=== PATIENT | male | born 1960 | race Caucasian/White ===

== ENCOUNTER 2023-03-13 07:56 | Inpatient (IN) | payer MEDICAID ==
[~2023-03-13] VITALS: Ht 177.8 cm; Wt 56.0 kg
[2023-03-13 08:40] LABS: Basophils # (auto) 0.2 10 ^3/uL (0-0.2); Basophils % (auto) 1.2 % (0.0-2.0); Eosinophils # (auto) 0.1 10 ^3/uL (0-0.8); Eosinophils % (auto) 0.6 % (0.0-7.0); Hematocrit 38.6 % (41.0-53.0); Hemoglobin 12.3 g/dL (13.5-17.5); Lymphocytes # (auto) 1.4 10 ^3/uL (0.4-5.4); Lymphocytes % (auto) 9.4 % (10.0-50.0); Mean Corpuscular Hemoglobin 28.5 pg (28.0-32.0); Mean Corpuscular Hgb Conc. 31.8 g/dL (32.0-36.0); Mean Corpuscular Volume 89.9 fL (80.0-100.0); Monocytes # (auto) 1.3 10 ^3/uL (0-1.3); Monocytes % (auto) 8.7 % (0.0-12.0); Neutrophils # (auto) 11.9 10 ^3/uL (1.6-8.6); Neutrophils % (auto) 80.1 % (37.0-80.0); Red Cell Distribution Width 15.9 % (11.8-14.3); White Blood Cell 14.9 10^3/uL (4.4-10.8)
[2023-03-13 09:01] LABS: Alanine Aminotransferase 90 U/L (7-40); Albumin 4.2 g/dL (3.2-4.8); Alkaline Phosphatase 74 U/L (46-116); Anion Gap 8 (5-15); Aspartate Aminotransferase 37 U/L (13-40); BUN/Creatinine Ratio 30.2 (10.0-20.0); Bilirubin, Total 1.3 mg/dL (0.2-1.0); Blood Urea Nitrogen 39 mg/dL (9-23); Calcium 8.9 mg/dL (8.5-10.1); Carbon Dioxide 31 mmol/L (20-30); Chloride 103 mmol/L (98-107); Glucose 92 mg/dL (74-106); Potassium 3.1 mmol/L (3.5-5.1); Sodium 142 mmol/L (136-145); Total Protein 6.4 g/dL (5.7-8.2)
[2023-03-13 09:18] LABS: INR 1.1 (0.9-1.15); Partial Thromboplastin Time 28.7 SEC (24.5-34.5); Prothrombin Time 11.7 sec (9.3-11.8)
[2023-03-13] MEDS ORDERED: SODIUM CHLORIDE 0.9% 1,000 ML IV ONE (09:30)
[2023-03-13] MEDS ORDERED: ASPirin 81 mg TAB PO ONE (09:30)
[2023-03-13] MEDS ORDERED: POTASSIUM EFFERVESENT TAB 25 MEQ PO ONE (10:00)
[2023-03-13 10:56] LABS: Urine Epithelial Cast None Seen /hpf (<5)
[2023-03-13 11:54] LABS: Urine Bacteria FEW /hpf (None Seen); Urine Blood Negative /uL (Negative); Urine Clarity Clear (Clear); Urine Protein, UAD Negative (Negative); Urine Specific Gravity 1.005 (1.001-1.035); Urine Urobilinogen Normal (Negative); Urine WBC 1 /hpf (0 - 3)
[2023-03-13 11:59] LABS: Urine Color Straw (Yellow)
[2023-03-13] MEDS ORDERED: ACETAMINOPHEN 325 MG TAB PO PRN (15:30)
[2023-03-13] MEDS ORDERED: cefTRIAXone 1GM/50ML D5W 50 ML IV ONE (15:30)
[2023-03-13] MEDS ORDERED: FUROSEMIDE 20 MG/2 ML VIAL IV ONE (15:30)
[2023-03-13] MEDS ORDERED: PANTOPRAZOLE 40 MG TAB PO ONE (15:45)
[2023-03-13] MEDS ORDERED: ALBUTEROL SULF 2.5 MG/0.5ML(0.5%) NEB SOLN NEB PRN (15:45)
[2023-03-13 16:47] VITALS: PULSE 64; RESP 18; O2SAT 95
[2023-03-13 17:05] VITALS: BP 118/68; PULSE 64; RESP 20; TEMP 98.2; O2SAT 96
[2023-03-13] MEDS: IPRATROPIUM BROM 0.5 MG/2.5ML INH SOL NEB SCH ×2 (17:57→22:27)
[2023-03-13] MEDS: ALBUTEROL SULF 2.5 MG/0.5ML(0.5%) NEB SOLN NEB SCH ×2 (17:57→22:27)
[2023-03-13 23:55] VITALS: BP 115/71; PULSE 61; RESP 17; TEMP 98.3; O2SAT 99
[2023-03-14] VITALS (19 sets, daily range): BP systolic 90–142; BP diastolic 62–84; PULSE 51–72; RESP 17–20; TEMP 98–98.7; O2SAT 95–100
[2023-03-14] MEDS: IPRATROPIUM BROM 0.5 MG/2.5ML INH SOL NEB SCH ×4 (01:32→14:08)
[2023-03-14] MEDS: ALBUTEROL SULF 2.5 MG/0.5ML(0.5%) NEB SOLN NEB SCH ×4 (01:32→14:08)
[2023-03-14] MEDS ORDERED: GUAI1TAB18 PO (02:54)
[2023-03-14] MEDS ORDERED: DOCU-94 PO (02:54)
[2023-03-14] MEDS ORDERED: FURO40TA4 PO (02:54)
[2023-03-14] MEDS ORDERED: NIC21P TOP (02:54)
[2023-03-14] MEDS ORDERED: APIX5TAB PO ×2 (02:54→15:13)
[2023-03-14] MEDS ORDERED: PANT40TA2 PO (02:54)
[2023-03-14] MEDS ORDERED: DILT30TA PO ×2 (02:54→15:13)
[2023-03-14] MEDS ORDERED: BENZ100C97 PO (02:54)
[2023-03-14] MEDS ORDERED: ALBU2TAB11 PO (02:54)
[2023-03-14 06:41] LABS: Alanine Aminotransferase 59 U/L (7-40); Albumin 3.4 g/dL (3.2-4.8); Alkaline Phosphatase 58 U/L (46-116); Anion Gap 5 (5-15); Aspartate Aminotransferase 23 U/L (13-40); BUN/Creatinine Ratio 23.5 (10.0-20.0); Calcium 8.3 mg/dL (8.7-10.4); Carbon Dioxide 30 mmol/L (20-30); Chloride 104 mmol/L (98-107); Glucose 75 mg/dL (74-106); Potassium 3.4 mmol/L (3.5-5.1); Sodium 139 mmol/L (136-145)
[2023-03-14 06:48] LABS: Blood Urea Nitrogen 28 mg/dL (9-23)
[2023-03-14 07:01] LABS: Basophils # (auto) 0 10 ^3/uL (0-0.2); Basophils % (auto) 0.1 % (0.0-2.0); Eosinophils # (auto) 0.1 10 ^3/uL (0-0.8); Eosinophils % (auto) 0.8 % (0.0-7.0); Hematocrit 32.3 % (41.0-53.0); Hemoglobin 10.5 g/dL (13.5-17.5); Lymphocytes # (auto) 1.2 10 ^3/uL (0.4-5.4); Lymphocytes % (auto) 11.1 % (10.0-50.0); Mean Corpuscular Hemoglobin 29.1 pg (28.0-32.0); Mean Corpuscular Hgb Conc. 32.5 g/dL (32.0-36.0); Mean Corpuscular Volume 89.4 fL (80.0-100.0); Monocytes # (auto) 1.1 10 ^3/uL (0-1.3); Monocytes % (auto) 9.8 % (0.0-12.0); Neutrophils # (auto) 8.8 10 ^3/uL (1.6-8.6); Neutrophils % (auto) 78.2 % (37.0-80.0); Red Blood Cells 3.61 10^6/uL (4.5-5.90); Red Cell Distribution Width 15.9 % (11.8-14.3); White Blood Cell 11.3 10^3/uL (4.4-10.8)
[2023-03-14 07:08] LABS: Total Protein 5.5 g/dL (5.7-8.2)
[2023-03-14] MEDS ORDERED: cefTRIAXone 1GM/50ML D5W 50 ML IV SCH (09:00)
[2023-03-14] MEDS ORDERED: FUROSEMIDE 20 MG/2 ML VIAL IV SCH (10:00)
[2023-03-14] MEDS ORDERED: PANTOPRAZOLE 40 MG TAB PO SCH (10:00)
[2023-03-14] MEDS ORDERED: ENOXAPARIN SOD 40 MG/0.4 ML SYRINGE SC SCH (10:00)
[2023-03-14] MEDS ORDERED: ALBUAER3 IN (15:13)
[2023-03-14] MEDS ORDERED: POTA-180 PO (15:13)
[2023-03-14] MEDS ORDERED: FURO1TAB31 PO (15:13)
[2023-03-14] MEDS ORDERED: POTASSIUM CHL 20 Meq TABLET PO ONE (15:15)
== END 2023-03-14 15:50 | disposition home or self-care (01) | DRG 194 ==
LOC: ER 07:56 → OVERFLOW 15:33 → WEST WING 23:55
PROVIDERS: ADMIT Nurse Practitioner Family; ATTEND Internal Medicine
DX: I50.43 Acute on chronic combined systolic (congestive) and diastolic (congestive) heart failure (principal); I21.A1 Myocardial infarction type 2; D68.69 Other thrombophilia; K21.9 Gastro-esophageal reflux disease without esophagitis; I48.91 Unspecified atrial fibrillation; E87.6 Hypokalemia; E83.42 Hypomagnesemia; D72.829 Elevated white blood cell count, unspecified; I25.10 Atherosclerotic heart disease of native coronary artery without angina pectoris; F17.210 Nicotine dependence, cigarettes, uncomplicated; Z90.49 Acquired absence of other specified parts of digestive tract; J44.9 Chronic obstructive pulmonary disease, unspecified
CPT/HCPCS: 36415; 71045; 80053; 81001; 83735; 83880; 84443; 84484; 85025; 85379; 85610; 85730; 87040; 87081; 93005; 93306; 94640; G0378

== ENCOUNTER 2023-04-26 19:55 | Inpatient (IN) | payer MEDICAID ==
[~2023-04-26] VITALS: Ht 170.2 cm; Wt 60.0 kg
[~2023-04-26 19:55] MED LIST: ALBU2TAB11 PO; ALBUAER3 IN; APIX5TAB PO; BENZ100C97 PO; DILT30TA PO; DOCU-94 PO; FURO1TAB31 PO; FURO40TA4 PO; GUAI1TAB18 PO; NIC21P TOP; PANT40TA2 PO; POTA-180 PO
[2023-04-26 20:59] LABS: Basophils # (auto) 0.1 10 ^3/uL (0-0.2); Basophils % (auto) 1.3 % (0.0-2.0); Eosinophils # (auto) 0.1 10 ^3/uL (0-0.8); Eosinophils % (auto) 1.7 % (0.0-7.0); Hematocrit 34.6 % (41.0-53.0); Hemoglobin 10.8 g/dL (13.5-17.5); Lymphocytes # (auto) 1.1 10 ^3/uL (0.4-5.4); Lymphocytes % (auto) 13.8 % (10.0-50.0); Mean Corpuscular Hemoglobin 28.2 pg (28.0-32.0); Mean Corpuscular Hgb Conc. 31.4 g/dL (32.0-36.0); Mean Corpuscular Volume 89.9 fL (80.0-100.0); Monocytes # (auto) 0.8 10 ^3/uL (0-1.3); Monocytes % (auto) 9.4 % (0.0-12.0); Neutrophils % (auto) 73.8 % (37.0-80.0); Red Blood Cells 3.85 10^6/uL (4.5-5.90); White Blood Cell 8.2 10^3/uL (4.4-10.8)
[2023-04-26 21:13] LABS: Alanine Aminotransferase 48 U/L (7-40); Albumin 3.8 g/dL (3.2-4.8); Alkaline Phosphatase 93 U/L (46-116); Anion Gap 11 (5-15); Aspartate Aminotransferase 43 U/L (13-40); BUN/Creatinine Ratio 28.6 (10.0-20.0); Bilirubin, Total 0.9 mg/dL (0.2-1.0); Blood Urea Nitrogen 32 mg/dL (9-23); Calcium 8.6 mg/dL (8.7-10.4); Carbon Dioxide 26 mmol/L (20-30); Chloride 107 mmol/L (98-107); Glucose 114 mg/dL (74-106); Potassium 3.8 mmol/L (3.5-5.1); Sodium 144 mmol/L (136-145); Total Protein 5.8 g/dL (5.7-8.2)
[2023-04-26 21:31] LABS: INR 1.19 (0.9-1.15); Partial Thromboplastin Time 30.8 SEC (24.5-34.5); Prothrombin Time 12.4 sec (9.3-11.8)
[2023-04-27] VITALS (8 sets, daily range): BP systolic 149; BP diastolic 94; PULSE 103–147; RESP 15–20; O2SAT 96–100
[2023-04-27] MEDS ORDERED: ONDANSETRON HCL 4 MG/2 ML VIAL IV PRN (03:15)
[2023-04-27] MEDS ORDERED: HYDROcodone-ACET 5/325MG TAB PO PRN (03:15)
[2023-04-27] MEDS ORDERED: ACETAMINOPHEN 325 MG TAB PO PRN (03:15)
[2023-04-27] MEDS ORDERED: MORPHINE SULFATE INJ 2 MG/ml SYRG IV PRN (03:15)
[2023-04-27] MEDS ORDERED: NITROGLYCERIN 0.4 MG SL TAB SL PRN (03:15)
[2023-04-27] MEDS ORDERED: DOCUSATE SOD 100 MG CAP PO PRN (03:15)
[2023-04-27] MEDS: AZITHROMYCIN 250 MG TAB PO ONE (04:14)
[2023-04-27] MEDS: FUROSEMIDE 40 MG/4 ML VIAL IV ONE (04:47)
[2023-04-27] MEDS: SODIUM CHLOR 0.9% PF (SALINE LOCK) 10ML VIAL/SYR IV SCH (06:06)
[2023-04-27 06:12] LABS: Basophils # (auto) 0.1 10 ^3/uL (0-0.2); Basophils % (auto) 1.1 % (0.0-2.0); Eosinophils # (auto) 0.2 10 ^3/uL (0-0.8); Eosinophils % (auto) 2.8 % (0.0-7.0); Hematocrit 34.2 % (41.0-53.0); Hemoglobin 11.1 g/dL (13.5-17.5); Lymphocytes # (auto) 1.5 10 ^3/uL (0.4-5.4); Lymphocytes % (auto) 17.2 % (10.0-50.0); Mean Corpuscular Hgb Conc. 32.3 g/dL (32.0-36.0); Mean Corpuscular Volume 89.8 fL (80.0-100.0); Monocytes # (auto) 0.8 10 ^3/uL (0-1.3); Monocytes % (auto) 8.9 % (0.0-12.0); Neutrophils # (auto) 6.1 10 ^3/uL (1.6-8.6); Red Blood Cells 3.81 10^6/uL (4.5-5.90); Red Cell Distribution Width 18.6 % (11.8-14.3); White Blood Cell 8.8 10^3/uL (4.4-10.8)
[2023-04-27] MEDS: dilTIAZem HCL 60 MG TAB PO SCH (06:18)
[2023-04-27 06:27] LABS: Alanine Aminotransferase 46 U/L (7-40); Albumin 3.9 g/dL (3.2-4.8); Alkaline Phosphatase 94 U/L (46-116); Anion Gap 12 (5-15); Aspartate Aminotransferase 30 U/L (13-40); BUN/Creatinine Ratio 30.8 (10.0-20.0); Blood Urea Nitrogen 33 mg/dL (9-23); Calcium 8.8 mg/dL (8.7-10.4); Carbon Dioxide 23 mmol/L (20-30); Chloride 107 mmol/L (98-107); Glucose 102 mg/dL (74-106); Potassium 3.4 mmol/L (3.5-5.1); Sodium 142 mmol/L (136-145)
[2023-04-27 06:28] LABS: Bilirubin, Total 0.8 mg/dL (0.2-1.0)
[2023-04-27 08:21] LABS: Amphetamine Screen, Urine Neg (NEGATIVE); Barbiturate Scree,Urine Neg (NEGATIVE); Benzodiazephine Screen, Urine Neg (NEGATIVE); Cannabinoid Screen, Urine Neg (NEGATIVE); Cocaine Screen, Urine Neg (NEGATIVE); Opiate Scree,Urine Neg (NEGATIVE); Phencyclidine Screen, Urine Neg (NEGATIVE)
[2023-04-27] MEDS: APIXABAN 5 MG TAB PO SCH (10:17)
[2023-04-27] MEDS: FUROSEMIDE 40 MG/4 ML VIAL IV SCH (10:18)
[2023-04-27] MEDS: AZITHROMYCIN 500MG/ 250ML 250 ML IV SCH (10:54)
[2023-04-27] MEDS: ALBUTEROL SULF 2.5 MG/0.5ML(0.5%) NEB SOLN NEB PRN (15:37)
[2023-04-27] MEDS: POTASSIUM EFFERVESENT TAB 25 MEQ GT ONE (15:53)
[2023-04-27] MEDS: FUROSEMIDE 20 MG/2 ML VIAL IV SCH (18:04)
[2023-04-27] MEDS: AMIODARONE HCL 200 MG TAB PO SCH (23:14)
[2023-04-27] MEDS: METOPROLOL TARTRATE 25 MG TAB PO SCH (23:15)
[2023-04-27] MEDS: SACUBITRIL-VALSARTAN 24mg/26mg TAB PO SCH (23:16)
[2023-04-28 06:09] LABS: Basophils # (auto) 0.1 10 ^3/uL (0-0.2); Basophils % (auto) 1.3 % (0.0-2.0); Eosinophils # (auto) 0.3 10 ^3/uL (0-0.8); Eosinophils % (auto) 3.7 % (0.0-7.0); Hematocrit 33.4 % (41.0-53.0); Hemoglobin 10.6 g/dL (13.5-17.5); Lymphocytes # (auto) 1.6 10 ^3/uL (0.4-5.4); Lymphocytes % (auto) 19.7 % (10.0-50.0); Mean Corpuscular Hemoglobin 28.1 pg (28.0-32.0); Mean Corpuscular Hgb Conc. 31.6 g/dL (32.0-36.0); Mean Corpuscular Volume 88.8 fL (80.0-100.0); Monocytes # (auto) 0.9 10 ^3/uL (0-1.3); Monocytes % (auto) 10.9 % (0.0-12.0); Neutrophils # (auto) 5.3 10 ^3/uL (1.6-8.6); Neutrophils % (auto) 64.4 % (37.0-80.0); Red Blood Cells 3.76 10^6/uL (4.5-5.90); White Blood Cell 8.2 10^3/uL (4.4-10.8)
[2023-04-28 06:30] LABS: Alanine Aminotransferase 29 U/L (7-40); Albumin 3.4 g/dL (3.2-4.8); Alkaline Phosphatase 67 U/L (46-116); Anion Gap 7 (5-15); Aspartate Aminotransferase 20 U/L (13-40); BUN/Creatinine Ratio 26.2 (10.0-20.0); Blood Urea Nitrogen 28 mg/dL (9-23); Calcium 8.9 mg/dL (8.7-10.4); Carbon Dioxide 29 mmol/L (20-30); Chloride 105 mmol/L (98-107); Glucose 95 mg/dL (74-106); Magnesium 1.5 mg/dL (1.6-2.6); Potassium 3.5 mmol/L (3.5-5.1); Sodium 141 mmol/L (136-145)
[2023-04-28 06:31] LABS: Bilirubin, Total 0.6 mg/dL (0.2-1.0); Total Protein 5.4 g/dL (5.7-8.2)
[2023-04-28 07:42] VITALS: PULSE 98; RESP 18; O2SAT 95
[2023-04-28 08:11] VITALS: O2SAT 99
[2023-04-28] MEDS: EMPAGLIFLOZIN 10 MG TAB PO SCH (09:57)
[2023-04-28] MEDS: POTASSIUM EFFERVESENT TAB 25 MEQ PO ONE (14:44)
[2023-04-28] MEDS: MAGNESIUM SULFATE 1GM/100ML 100 ML IV SCH (15:31)
[2023-04-28 17:42] VITALS: BP 101/72; PULSE 90; RESP 16; TEMP 97.6; O2SAT 96
[2023-04-28 19:10] VITALS: O2SAT 95
[2023-04-28 20:00] VITALS: PULSE 85
[2023-04-28 22:00] VITALS: BP 109/72; PULSE 101; RESP 16; TEMP 97.8; O2SAT 99
[2023-04-29] VITALS (10 sets, daily range): BP systolic 99–107; BP diastolic 61–73; PULSE 49–82; RESP 16–19; TEMP 97.6–98.6; O2SAT 95–100
[2023-04-29 06:39] LABS: Basophils # (auto) 0.1 10 ^3/uL (0-0.2); Basophils % (auto) 1.1 % (0.0-2.0); Eosinophils # (auto) 0.3 10 ^3/uL (0-0.8); Hematocrit 36.3 % (41.0-53.0); Hemoglobin 11.3 g/dL (13.5-17.5); Lymphocytes # (auto) 2.1 10 ^3/uL (0.4-5.4); Lymphocytes % (auto) 19.3 % (10.0-50.0); Mean Corpuscular Hgb Conc. 31.3 g/dL (32.0-36.0); Mean Corpuscular Volume 89.5 fL (80.0-100.0); Monocytes # (auto) 1.1 10 ^3/uL (0-1.3); Monocytes % (auto) 10.2 % (0.0-12.0); Neutrophils # (auto) 7.4 10 ^3/uL (1.6-8.6); Neutrophils % (auto) 66.4 % (37.0-80.0); Nucleated Red Blood Cells % 0.1 %; Red Blood Cells 4.05 10^6/uL (4.5-5.90); Red Cell Distribution Width 19.3 % (11.8-14.3); White Blood Cell 11.2 10^3/uL (4.4-10.8)
[2023-04-29 06:56] LABS: Alanine Aminotransferase 28 U/L (7-40); Albumin 3.7 g/dL (3.2-4.8); Alkaline Phosphatase 69 U/L (46-116); Anion Gap 4 (5-15); Aspartate Aminotransferase 20 U/L (13-40); BUN/Creatinine Ratio 19.2 (10.0-20.0); Bilirubin, Total 0.6 mg/dL (0.2-1.0); Blood Urea Nitrogen 20 mg/dL (9-23); Calcium 8.8 mg/dL (8.7-10.4); Carbon Dioxide 29 mmol/L (20-30); Chloride 106 mmol/L (98-107); Glucose 97 mg/dL (74-106); Magnesium 2.1 mg/dL (1.6-2.6); Potassium 4.3 mmol/L (3.5-5.1); Sodium 139 mmol/L (136-145)
[2023-04-29] MEDS: DOXYCYCLINE 100 MG TAB/CAP PO SCH (10:51)
[2023-04-29] MEDS: PANTOPRAZOLE 40 MG TAB PO ONE (22:46)
[2023-04-30] VITALS (7 sets, daily range): BP systolic 91–113; BP diastolic 62–74; PULSE 55–78; RESP 16–20; TEMP 97.4–98.4; O2SAT 94–100
[2023-04-30] MEDS ORDERED: SACU1TAB PO (10:13)
[2023-04-30] MEDS ORDERED: EMPA1TAB PO (10:13)
[2023-04-30] MEDS ORDERED: MET25T PO (10:13)
[2023-04-30] MEDS ORDERED: POTA-211 PO (10:13)
[2023-04-30] MEDS ORDERED: DOX100T PO (10:13)
[2023-04-30] MEDS ORDERED: APIX5TAB PO (10:13)
[2023-04-30] MEDS ORDERED: PANT40T PO (10:13)
[2023-04-30] MEDS ORDERED: AMIO200T33 PO (10:13)
[2023-04-30] MEDS ORDERED: FURO1TAB31 PO (10:13)
[2023-04-30] MEDS: PANTOPRAZOLE 40 MG TAB PO SCH (11:11)
== END 2023-04-30 15:40 | disposition home or self-care (01) | DRG 137 ==
LOC: EDBD 19:55 → ER 19:55 → TELE 04-27 03:02 → TELE-EAST 04-28 17:14
PROVIDERS: ADMIT Nurse Practitioner Family; ATTEND Internal Medicine
DX: J15.69 Pneumonia due to other Gram-negative bacteria (principal); I21.A1 Myocardial infarction type 2; I50.23 Acute on chronic systolic (congestive) heart failure; I42.7 Cardiomyopathy due to drug and external agent; D63.8 Anemia in other chronic diseases classified elsewhere; D68.69 Other thrombophilia; J44.0 Chronic obstructive pulmonary disease with (acute) lower respiratory infection; I48.0 Paroxysmal atrial fibrillation; I25.10 Atherosclerotic heart disease of native coronary artery without angina pectoris; I11.0 Hypertensive heart disease with heart failure; F17.210 Nicotine dependence, cigarettes, uncomplicated; K21.9 Gastro-esophageal reflux disease without esophagitis; F19.10 Other psychoactive substance abuse, uncomplicated; E83.42 Hypomagnesemia; Y92.238 Other place in hospital as the place of occurrence of the external cause; T50.2X5A Adverse effect of carbonic-anhydrase inhibitors, benzothiadiazides and other diuretics, initial encounter; Z91.148 Patient's other noncompliance with medication regimen for other reason; Z71.89 Other specified counseling; Z59.00 Homelessness unspecified; Z79.01 Long term (current) use of anticoagulants; Z83.3 Family history of diabetes mellitus
CPT/HCPCS: 36415; 71045; 80053; 80307; 83735; 83880; 84484; 85025; 85610; 85730; 87081; 93005; 94640; G0378